=== PATIENT | female | born 1980 | race Caucasian/White ===

== ENCOUNTER 2016-09-29 05:20 | Emergency (ER) | payer SELFPAY ==
[2016-09-29 08:54] LABS: HEMOGLOBIN 10.2 g/dL (12.0-16.0); MEAN CORPUS HGB CONC 30.9 g/dL (32.0-36.0); MEAN CORPUSCULAR HEMOGLOB 23.7 pg (26.0-34.0); MEAN CORPUSCULAR VOLUME 76.6 fL (80-100); MEAN PLATELET VOLUME 8.9 fL (9.2-13.0); PLATELET COUNT 302 10/3/uL (150-400); RBC DISTRIBUTION WIDTH 16.2 % (12.0-16.0); RED CELL COUNT 4.31 10/6/uL (4.0-5.6); WHITE BLOOD CELLS 8.2 10/3/uL (4.5-10.5)
[2016-09-29 11:07] LABS: BAND NEUTROPHILS 1 %; EOSINOPHILS 4 %; EOSINOPHILS ABSOLUTE (CALC) 0.33 10/3/uL (0.0-0.53); HYPOCHROMIA 1+ (3-10/OIF) (0-2/OIF); LYMPHOCYTES 39 %; MONOCYTES 6 %; MONOCYTES ABSOLUTE (CALC) 0.49 10/3/uL (0.21-1.20); NEUTROPHILS ABSOLUTE (CALC) 4.18 10/3/uL (2.02-8.40); PLATELET ESTIMATE ADQ (ADEQUATE); SEGMENTED NEUTROPHIL (0) 50 %; TOTAL NUCLEATED CELLS 100
[2016-09-29 11:08] LABS: MICROCYTES 1+ (5-10/OIF) (0-5/OIF); POLYCHROMASIA 1+ (2-5/OIF) (0-1/OIF)
[2016-09-29 12:09] LABS: SED RATE 18 MM/HR (0-20)
== END 2016-09-29 10:46 | disposition home or self-care (01) ==
LOC: ER 05:20
PROVIDERS: Physician Assistant
DX: L03.116 Cellulitis of left lower limb (principal); L03.115 Cellulitis of right lower limb; R60.9 Edema, unspecified; F31.9 Bipolar disorder, unspecified; Z88.6 Allergy status to analgesic agent
CPT/HCPCS: 85007; 85027; 85652; 86140; 99283